=== PATIENT | female | born 1975 | race Caucasian/White ===

== ENCOUNTER 2017-10-11 15:42 | Inpatient (IN) | payer BC ==
[2017-10-11] MEDS ORDERED: PROMETHAZINE HCL INJ 25 MG/1 ML VIAL IV PRN (16:57)
[2017-10-11 17:49] LABS: APPEARANCE,URINE CLEAR; BILIRUBIN,URINE NEGATIVE (NEGATIVE); COLOR,URINE STRAW; GLUCOSE, URINE NEGATIVE (NEGATIVE); KETONES,URINE NEGATIVE (NEGATIVE); LEUKOCYTE ESTERASE,URINE NEGATIVE (NEGATIVE); NITRITE,URINE NEGATIVE (NEGATIVE); PROTEIN,URINE NEGATIVE (NEGATIVE); URINE SPECIFIC GRAVITY 1.004; UROBILINOGEN,URINE NEGATIVE mg/dL (<2.0)
[2017-10-11] MEDS: NORMAL SALINE 1000 ML 1,000 ML IV PRN (18:09)
[2017-10-11] MEDS: MORPHINE SULFATE 10 MG/ML INJ IV PRN (18:10)
[2017-10-11 18:33] LABS: HEMATOCRIT 26.5 % (36.0-47.0); HEMOGLOBIN 8.4 g/dL (12.0-15.5); MEAN CORPUSCULAR HEMOGLOBIN 23.8 pg (27.0-33.4); MEAN CORPUSCULAR HGB CONC 31.7 g/dL (32.0-36.0); MEAN CORPUSCULAR VOLUME 75 fl (80-97); PLATELET COUNT 400 10^3/uL (150-450); RED BLOOD COUNT 3.53 10^6/uL (3.72-5.28); RED CELL DISTRIBUTION WIDTH 17.3 % (11.5-14.0); WHITE BLOOD COUNT 9.2 10^3/uL (4.0-10.5)
[2017-10-11 18:52] LABS: ALANINE AMINOTRANSFERASE 23 U/L (9-52); ALBUMIN 4.4 g/dL (3.5-5.0); ALKALINE PHOSPHATASE 66 U/L (38-126); AMYLASE 82 U/L (30-110); ANION GAP 12 (5-19); ASPARTATE AMINO TRANSFERASE 18 U/L (14-36); BLOOD UREA NITROGEN 5 mg/dL (7-20); CALCIUM 8.7 mg/dL (8.4-10.2); CARBON DIOXIDE 27 mmol/L (22-30); CHLORIDE 102 mmol/L (98-107); GLUCOSE 85 mg/dL (75-110); POTASSIUM 3.2 mmol/L (3.6-5.0); SODIUM 141.4 mmol/L (137-145)
[2017-10-11 18:55] LABS: BILIRUBIN,TOTAL < 0.1 mg/dL (0.2-1.3)
[2017-10-11 19:06] LABS: FREE T4 (FREE THYROXINE) 0.2 ng/dL (0.78-2.19)
[2017-10-11 19:20] LABS: THYROID STIMULATING HORMONE 54.4 uIU/mL (0.47-4.68)
[2017-10-11] MEDS ORDERED: GABAPENTIN 300 MG CAPSULE PO PRN (21:09)
[2017-10-11] MEDS ORDERED: (PENDING PHARMACY ID) (Oxycodone Hcl/Acetaminophen [Percocet 7.5-325 Mg Tablet] 1 EACH) PO PRN (21:09)
[2017-10-11] MEDS: TEMAZEPAM 15 MG CAPSULE PO SCH (21:55)
[2017-10-11] MEDS: ALPRAZOLAM 0.5 MG TABLET PO PRN (21:55)
[2017-10-11] MEDS: OXYCODONE-ACETAMINOPHEN 5-325 MG TABLET PO PRN (21:55)
[2017-10-11] MEDS ORDERED: (PENDING PHARMACY ID) (Temazepam [Restoril] 30 MG) PO SCH (22:00)
[2017-10-11 22:01] LABS: ABSOLUTE RETICS # 0.061 10^6/uL (0.028-0.122); RETICULOCYTE COUNT (AUTO) 1.74 % (0.66-2.85)
[2017-10-11 22:48] LABS: FERRITIN 4.99 ng/mL (6.2-137.0)
[2017-10-11 23:18] LABS: FOLATE 2.84 ng/mL (>2.76)
[2017-10-11 23:20] LABS: IRON(TIBC) < 10.1 ug/dL (37-170)
[2017-10-12] MEDS: OXYCODONE-ACETAMINOPHEN 5-325 MG TABLET PO PRN ×2 (03:15→14:24)
[2017-10-12] MEDS: MORPHINE SULFATE 10 MG/ML INJ IV PRN ×2 (05:41→20:09)
[2017-10-12] MEDS: NORMAL SALINE 1000 ML 1,000 ML IV PRN ×2 (05:41→14:30)
[2017-10-12] MEDS: LEVOTHYROXINE SODIUM 0.15 MG TABLET PO SCH (05:42)
[2017-10-12 08:34] LABS: ABSOLUTE BASOPHILS # (AUTO) 0.1 10^3/uL (0.0-0.2); ABSOLUTE EOSINOPHILS # (AUTO) 0.5 10^3/uL (0.0-0.6); ABSOLUTE LYMPHOCYTES (AUTO) 2.1 10^3/uL (0.5-4.7); ABSOLUTE MONOCYTES (AUTO) 0.3 10^3/uL (0.1-1.4); ABSOLUTE NEUT (AUTO) 4.9 10^3/uL (1.7-8.2); BASOPHILS % (AUTO) 1.2 % (0-2); EOSINOPHILS % (AUTO) 6.2 % (0-6); HEMATOCRIT 25.3 % (36.0-47.0); MEAN CORPUSCULAR HEMOGLOBIN 23.4 pg (27.0-33.4); MEAN CORPUSCULAR HGB CONC 31.2 g/dL (32.0-36.0); MEAN CORPUSCULAR VOLUME 75 fl (80-97); MONOCYTES % (AUTO) 4.3 % (3-13); PLATELET COUNT 354 10^3/uL (150-450); RED BLOOD COUNT 3.37 10^6/uL (3.72-5.28); RED CELL DISTRIBUTION WIDTH 17.3 % (11.5-14.0); SEGMENTED NEUTROPHILS % (AUTO) 62.3 % (42-78); TOTAL CELLS COUNTED % (AUTO) 100 %; WHITE BLOOD COUNT 7.9 10^3/uL (4.0-10.5)
[2017-10-12] MEDS: OXYCODONE HCL IR 5 MG TABLET PO PRN ×2 (08:35→17:10)
[2017-10-12] MEDS: ALPRAZOLAM 0.5 MG TABLET PO PRN ×2 (08:36→17:06)
--- NOTE | 2017-10-12 08:42 | RADIOLOGY REPORT (SQ) ---
EXAM DESCRIPTION: CT ABD/PELVIS WITH IV ONLY COMPLETED DATE/TIME: 10/11/2017 7:15 pm REASON FOR STUDY: Severe left upper quad abdominal pain COMPARISON: 05/14/2015 TECHNIQUE: CT scan of the abdomen and pelvis performed using helical scanning technique with dynamic intravenous contrast injection. No oral contrast. Images reviewed with lung, soft tissue, and bone windows. Reconstructed coronal and sagittal MPR images reviewed. Delayed images for evaluation of the urinary system also acquired. All images stored on PACS. All CT scanners at this facility use dose modulation, iterative reconstruction, and/or weight based d osing when appropriate to reduce radiation dose to as low as reasonably achievable (ALARA). [facility]: Dose Right [facility]: CareDose [facility]: Dose Right [facility]: Teradose 4D [facility]: Geotender CONTRAST TYPE AND DOSE: contrast/concentration: Isovue 350.00 mg/ml; Total Contrast Delivered: 75.0 ml; Total Saline Delivered: 47.0 ml RENAL FUNCTION: None required. The patient is less than 50 years old. RADIATION DOSE: CT Rad equipment meets quality standard of care and radiation dose reduction techniq ues were employed. CTDIvol: 6.9 - 9.7 mGy. DLP: 879 mGy-cm.. LIMITATIONS: None. FINDINGS: LOWER CHEST: No significant findings. No nodules or infiltrates. LIVER: Normal size. No masses. No dilated ducts. SPLEEN: Normal size. No focal lesions. PANCREAS: No masses. No significant calcifications. No adjacent inflammation or peripancreatic fluid collections. Pancreatic duct not dilated. GALLBLADDER: No identified stones by CT criteria. No inflammatory changes to suggest cholecystitis. ADRENAL GLANDS: No significant masses or asymmetry. RIGHT KIDNEY AND URETER: No solid masses. No significant calcifications. No hydronephrosis or hyd roureter. LEFT KIDNEY AND URETER: No solid masses. No significant calcifications. No hydronephrosis or hydr oureter. AORTA AND VESSELS: No aneurysm. No dissection. Renal arteries, SMA, celiac without stenosis. RETROPERITONEUM: No retroperitoneal adenopathy, hemorrhage or masses. BOWEL AND PERITONEAL CAVITY: No masses or inflammatory changes. No free fluid or peritoneal masses. APPENDIX: Normal. PELVIS: The uterus remains enlarged but stable in appearance. Small adnexal lesions are noted consis tent with cysts. No free fluid. ABDOMINAL WALL: There is a small umbilical hernia containing omental fat only. BONES: No significant or acute findings. OTHER: No other significant finding. IMPRESSION: 1. The uterus remains enlarged but no focal masses are identified. 2. No other significant findings in the abdomen or pelvis. No evidence of inflammation. No evidence of bowel obstruction. TECHNICAL DOCUMENTATION: JOB ID: [id number] Quality ID # [id number]: Final reports with documentation of one or more dose reduction techniques (e.g., Au tomated exposure control, adjustment of the mA and/or kV according to patient size, use of iterative reconstruction technique) 2010 [employer] All Rights Reserved Reading location - IP/workstation name: [email or web address]
[2017-10-12 08:43] LABS: HEMOGLOBIN 7.9 g/dL (12.0-15.5)
[2017-10-12 08:46] LABS: ABSOLUTE RETICS # 0.051 10^6/uL (0.028-0.122); RETICULOCYTE COUNT (AUTO) 1.52 % (0.66-2.85)
[2017-10-12 09:32] LABS: FERRITIN 5.12 ng/mL (6.2-137.0)
[2017-10-12] MEDS ORDERED: MORPHINE SULFATE 10 MG/ML INJ ONE (09:43)
[2017-10-12] MEDS ORDERED: LEVOTHYROXINE SODIUM INJ/PF 0.1 MG SDV IV SCH (10:00)
[2017-10-12 10:02] LABS: FOLATE 3.16 ng/mL (>2.76)
[2017-10-12 10:05] LABS: IRON(TIBC) < 10.1 ug/dL (37-170)
[2017-10-12] MEDS ORDERED: MORPHINE SULFATE 10 MG/ML INJ IV PRN (10:28)
[2017-10-12 17:46] LABS: ALANINE AMINOTRANSFERASE 20 U/L (9-52); ALBUMIN 3.6 g/dL (3.5-5.0); ALKALINE PHOSPHATASE 56 U/L (38-126); ANION GAP 12 (5-19); ASPARTATE AMINO TRANSFERASE 18 U/L (14-36); BILIRUBIN,DIRECT 0.2 mg/dL (0.0-0.4); BILIRUBIN,TOTAL 0.2 mg/dL (0.2-1.3); BLOOD UREA NITROGEN 5 mg/dL (7-20); CARBON DIOXIDE 21 mmol/L (22-30); CHLORIDE 108 mmol/L (98-107); GLUCOSE 99 mg/dL (75-110); POTASSIUM 3.4 mmol/L (3.6-5.0); SODIUM 140.7 mmol/L (137-145)
--- NOTE | 2017-10-12 18:05 | PDOC H&P ---
History of Present Illness Admission Date/PCP: 10/11/17 15:42 YELENA DIMAS MD History of Present Illness: REMY GARCIA is a 42 year old female, she came to the office after many years of hiatus for evaluation of pain in the left upper quadrant of the abdomen , she was very tender to touch in the office, she has a history of hypothyroidism, she has not took a Synthroid in 8 months she has boggy eyelids suggestive of hypothyroid state. She was admitted directly from the office to the hospital for evaluation of her symptoms, a CAT scan of the abdomen and pelvis was obtained, it demonstrated normal pancreas, liver, spleen, gallbladder , it showed enlarged uterus otherwise negative study. Initial blood work suggests anemia subsequent evaluation suggests severe iron deficiency anemia. There is no explanation for the pain in the left upper quadrant that she is experiencing. I spoke to the GI physician Dr. Dsouza, patient will be need GI endoscopy for evaluation in light of the severe deficiency anemia and also unexplained left upper quadrant pain of the abdomen. Past Medical History Pulmonary Medical History: Reports: Pneumonia Neurological Medical History: Reports: Migraine Endocrine Medical History: Reports: Hypothyroidism Musculoskeltal Medical History: Reports: Fibromyalgia Psychiatric Medical History: Reports: Bipolar Disorder, Depression Past Surgical History Past Surgical History: Reports: Section - 2, Tubal Ligation Social History Smoking Status: Current Every Day Smoker Cigarettes Packs Per Day: 1 Frequency of Alcohol Use: Occasional Hx Recreational Drug Use: No Drugs: None Hx Prescription Drug Abuse: No Family History Family History: Reviewed & Not Pertinent Parental Family History Reviewed: Yes Children Family History Reviewed: Yes Sibling(s) Family History Reviewed.: Yes Medication/Allergy Home Medications: Alprazolam [Xanax 0.5 mg Tablet] 0.5 mg PO Q8HP PRN 10/11/17 Gabapentin [Neurontin 300 mg Capsule] 300 mg PO Q8HP PRN 10/11/17 Levothyroxine Sodium [Synthroid 0.15 mg Tablet] 0.15 mg PO Q6AM 10/11/17 Oxycodone HCl/Acetaminophen [Percocet 7.5-325 mg Tablet] 1 each PO BIDP PRN Temazepam [Restoril] 30 mg PO QHS 10/11/17 Allergies/Adverse Reactions: NSAIDS (Non-Steroidal Anti-Inflamma [Nsaids] Allergy (Mild, Verified 07/29/15 19 :43) cephalexin monohydrate [From Keflex] Allergy (Verified 07/29/15 19:43) Sulfa (Sulfonamide Antibiotics) Allergy (Verified 07/29/15 19:43) sulfamethoxazole [From Bactrim] Allergy (Verified 07/29/15 19:43) trimethoprim [From Bactrim] Allergy (Verified 07/29/15 19:43) Review of Systems Constitutional: ABSENT: chills, fever(s), headache(s), weight gain, weight loss Eyes: ABSENT: visual disturbances Ears: ABSENT: hearing changes Cardiovascular: ABSENT: chest pain, dyspnea on exertion, edema, orthropnea, palpitations Respiratory: ABSENT: cough, hemoptysis Gastrointestinal: PRESENT: abdominal pain Genitourinary: ABSENT: dysuria, hematuria Musculoskeletal: ABSENT: joint swelling Integumentary: ABSENT: rash, wounds Neurological: ABSENT: abnormal gait, abnormal speech, confusion, dizziness, focal weakness, syncope Psychiatric: ABSENT: anxiety, depression, homidical ideation, suicidal ideation Endocrine: ABSENT: cold intolerance, heat intolerance, menstrual abnormalities, polydipsia, polyuria Hematologic/Lymphatic: ABSENT: easy bleeding, easy bruising, lymphadenopathy Physical Exam Vital Signs: Temp Pulse Resp BP Pulse Ox 98.6 F 73 16 111/67 98 10/12/17 15:17 10/12/17 15:17 10/12/17 15:17 10/12/17 15:17 10/12/17 15:17 Intake & Output 10/11/17 10/12/17 10/13/17 06:59 06:59 06:59 Intake Total 2530 882 Balance 2530 882 Weight 72.4 kg General appearance: PRESENT: mild distress Head exam: PRESENT: atraumatic, normocephalic Eye exam: PRESENT: conjunctiva pink, EOMI, PERRLA Ear exam: PRESENT: normal external ear exam Mouth exam: PRESENT: moist, tongue midline Neck exam: PRESENT: full ROM Respiratory exam: PRESENT: clear to auscultation guy Cardiovascular exam: PRESENT: RRR, +S1, +S2 Pulses: PRESENT: normal dorsalis pedis pul, +2 pedal pulses bilateral Vascular exam: PRESENT: normal capillary refill GI/Abdominal exam: PRESENT: soft, tenderness - There is tenderness in the left upper quadrant of the abdomen Rectal exam: PRESENT: deferred Neurological exam: PRESENT: alert, awake, oriented to person, oriented to place , oriented to time, oriented to situation, CN II-XII grossly intact Psychiatric exam: PRESENT: appropriate affect, normal mood Skin exam: PRESENT: dry, intact, warm Results Laboratory Results: 10/12/17 08:14 10/12/17 08:14 10/11/17 10/11/17 10/11/17 17:20 17:55 17:55 WBC 9.2 RBC 3.53 L Hgb 8.4 L Hct 26.5 L MCV 75 L MCH 23.8 L MCHC 31.7 L RDW 17.3 H Plt Count 400 Seg Neutrophils % Lymphocytes % Monocytes % Eosinophils % Basophils % Absolute Neutrophils Absolute Lymphocytes Absolute Monocytes Absolute Eosinophils Absolute Basophils Retic Count (auto) Absolute Retic Sodium 141.4 Potassium 3.2 L Chloride 102 Carbon Dioxide 27 Anion Gap 12 BUN 5 L Creatinine 0.67 Est GFR ( Amer) > 60 Est GFR (Non-Af Amer) > 60 Glucose 85 Calcium 8.7 Iron TIBC % Saturation Ferritin Total Bilirubin < 0.1 L AST 18 ALT 23 Alkaline Phosphatase 66 Total Protein 7.0 Albumin 4.4 Amylase 82 Lipase 373.0 H Vitamin B12 Folate TSH Free T4 Urine Color STRAW Urine Appearance CLEAR Urine pH 6.0 Ur Specific [place] 1.004 Urine Protein NEGATIVE Urine Glucose (UA) NEGATIVE Urine Ketones NEGATIVE Urine Blood LARGE H Urine Nitrite NEGATIVE Ur Leukocyte Esterase NEGATIVE Urine WBC (Auto) 3 Urine RBC (Auto) 0 10/11/17 10/11/17 10/11/17 17:55 17:55 17:55 WBC RBC Hgb Hct MCV MCH MCHC RDW Plt Count Seg Neutrophils % Lymphocytes % Monocytes % Eosinophils % Basophils % Absolute Neutrophils Absolute Lymphocytes Absolute Monocytes Absolute Eosinophils Absolute Basophils Retic Count (auto) 1.74 Absolute Retic 0.061 Sodium Potassium Chloride Carbon Dioxide Anion Gap BUN Creatinine Est GFR ( Amer) Est GFR (Non-Af Amer) Glucose Calcium Iron < 10.1 L TIBC 529 H % Saturation UNABLE TO CALCULATE Ferritin 4.99 L Total Bilirubin AST ALT Alkaline Phosphatase Total Protein Albumin Amylase Lipase Vitamin B12 658.0 Folate 2.84 TSH 54.40 H Free T4 0.20 L Urine Color Urine Appearance Urine pH Ur Specific [place] Urine Protein Urine Glucose (UA) Urine Ketones Urine Blood Urine Nitrite Ur Leukocyte Esterase Urine WBC (Auto) Urine RBC (Auto) 10/12/17 10/12/17 10/12/17 08:14 08:14 08:14 WBC 7.9 RBC 3.37 L Hgb 7.9 L Hct 25.3 L MCV 75 L MCH 23.4 L MCHC 31.2 L RDW 17.3 H Plt Count 354 Seg Neutrophils % 62.3 Lymphocytes % 26.0 Monocytes % 4.3 Eosinophils % 6.2 H Basophils % 1.2 Absolute Neutrophils 4.9 Absolute Lymphocytes 2.1 Absolute Monocytes 0.3 Absolute Eosinophils 0.5 Absolute Basophils 0.1 Retic Count (auto) 1.52 Absolute Retic 0.051 Sodium Potassium Chloride Carbon Dioxide Anion Gap BUN Creatinine Est GFR ( Amer) Est GFR (Non-Af Amer) Glucose Calcium Iron < 10.1 L TIBC 464 H % Saturation UNABLE TO CALCULATE Ferritin 5.12 L Total Bilirubin AST ALT Alkaline Phosphatase Total Protein Albumin Amylase Lipase Vitamin B12 640.0 Folate 3.16 TSH Free T4 Urine Color Urine Appearance Urine pH Ur Specific [place] Urine Protein Urine Glucose (UA) Urine Ketones Urine Blood Urine Nitrite Ur Leukocyte Esterase Urine WBC (Auto) Urine RBC (Auto) 10/12/17 08:14 WBC RBC Hgb Hct MCV MCH MCHC RDW Plt Count Seg Neutrophils % Lymphocytes % Monocytes % Eosinophils % Basophils % Absolute Neutrophils Absolute Lymphocytes Absolute Monocytes Absolute Eosinophils Absolute Basophils Retic Count (auto) Absolute Retic Sodium 140.7 Potassium 3.4 L Chloride 108 H Carbon Dioxide 21 L Anion Gap 12 BUN 5 L Creatinine 0.58 Est GFR ( Amer) > 60 Est GFR (Non-Af Amer) > 60 Glucose 99 Calcium 8.0 L Iron TIBC % Saturation Ferritin Total Bilirubin 0.2 AST 18 ALT 20 Alkaline Phosphatase 56 Total Protein 6.0 L Albumin 3.6 Amylase Lipase Vitamin B12 Folate TSH Free T4 Urine Color Urine Appearance Urine pH Ur Specific [place] Urine Protein Urine Glucose (UA) Urine Ketones Urine Blood Urine Nitrite Ur Leukocyte Esterase Urine WBC (Auto) Urine RBC (Auto) 10/11/17 17:20 Clean Catch Midstream Urine Culture - Final Mixed Urogenital Anita Impressions: Abdomen/Pelvis CT 10/11/17 00:00 IMPRESSION: 1. The uterus remains enlarged but no focal masses are identified. 2. No other significant findings in the abdomen or pelvis. No evidence of inflammation. No evidence of bowel obstruction. 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
--- NOTE | 2017-10-12 19:18 | PDOC CONSULTATION ---
Consultation Consult Date: 10/12/17 Attending physician:: ESTEFANI DAY Consult reason:: abdominal pain. iron dificiency anemia History of Present Illness Admission Date/PCP: 10/11/17 15:42 YELENA DIMAS MD History of Present Illness: REMY GARCIA is a 42 year old female patient presented to Dr Xavier's office if abdominal pain out of proportion to physical and CT scan findings I spoke with Dr Xavier, apparently patient had so much pain that is was excruciating to light touch patient admitted has iron deficiency anemia has not have GI evaluation patient denies any NSAID use there is no blood noted denies any dysphagia or odynophagia Past Medical History Pulmonary Medical History: Reports: Pneumonia Neurological Medical History: Reports: Migraine Endocrine Medical History: Reports: Hypothyroidism Musculoskeltal Medical History: Reports: Fibromyalgia Psychiatric Medical History: Reports: Bipolar Disorder, Depression Past Surgical History Past Surgical History: Reports: Section - 2, Tubal Ligation Social History Smoking Status: Current Every Day Smoker Cigarettes Packs Per Day: 1 Frequency of Alcohol Use: Occasional Hx Recreational Drug Use: No Drugs: None Hx Prescription Drug Abuse: No Family History Family History: Reviewed & Not Pertinent Parental Family History Reviewed: Yes Children Family History Reviewed: Unknown Sibling(s) Family History Reviewed.: Unknown Medication/Allergy Home Medications: Alprazolam [Xanax 0.5 mg Tablet] 0.5 mg PO Q8HP PRN 10/11/17 Gabapentin [Neurontin 300 mg Capsule] 300 mg PO Q8HP PRN 10/11/17 Levothyroxine Sodium [Synthroid 0.15 mg Tablet] 0.15 mg PO Q6AM 10/11/17 Oxycodone HCl/Acetaminophen [Percocet 7.5-325 mg Tablet] 1 each PO BIDP PRN Temazepam [Restoril] 30 mg PO QHS 10/11/17 Allergies/Adverse Reactions: NSAIDS (Non-Steroidal Anti-Inflamma [Nsaids] Allergy (Mild, Verified 07/29/15 19 :43) cephalexin monohydrate [From Keflex] Allergy (Verified 07/29/15 19:43) Sulfa (Sulfonamide Antibiotics) Allergy (Verified 07/29/15 19:43) sulfamethoxazole [From Bactrim] Allergy (Verified 07/29/15 19:43) trimethoprim [From Bactrim] Allergy (Verified 07/29/15 19:43) Review of Systems Constitutional: ABSENT: fever(s), headache(s), night sweats, weakness Eyes: ABSENT: visual disturbances Ears: ABSENT: hearing changes Nose, Mouth, and Throat: ABSENT: mouth pain, sore throat Cardiovascular: ABSENT: edema, orthropnea, palpitations Respiratory: ABSENT: dyspnea, hemoptysis Gastrointestinal: ABSENT: hematochezia, melena, nausea, vomiting Genitourinary: ABSENT: dysuria, hematuria Musculoskeletal: ABSENT: deformity, joint swelling Integumentary: ABSENT: lesions, pruritus Neurological: ABSENT: syncope, tingling, tremor(s), vertigo Endocrine: ABSENT: polydipsia, polyphagia, polyuria Hematologic/Lymphatic: ABSENT: easy bruising Physical Exam Vital Signs: Temp Pulse Resp BP Pulse Ox 98.6 F 73 16 111/67 98 10/12/17 15:17 10/12/17 15:17 10/12/17 15:17 10/12/17 15:17 10/12/17 15:17 Intake & Output 10/11/17 10/12/17 10/13/17 06:59 06:59 06:59 Intake Total 2530 2139 Balance 2530 2139 Weight 72.4 kg General appearance: PRESENT: well-developed, well-nourished Head exam: PRESENT: atraumatic, normocephalic Eye exam: PRESENT: EOMI, nystagmus, periorbital swelling, PERRLA, scleral icterus Mouth exam: PRESENT: moist, neck supple Throat exam: ABSENT: tonsillar exudate, tonsillogmegaly Neck exam: ABSENT: meningismus, tenderness, thyromegaly Respiratory exam: PRESENT: symmetrical, unlabored. ABSENT: tachypnea, wheezes Cardiovascular exam: PRESENT: RRR, +S1, +S2 GI/Abdominal exam: PRESENT: soft, tenderness. ABSENT: rebound, rigid Extremities exam: ABSENT: joint swelling Musculoskeletal exam: PRESENT: full ROM Neurological exam: PRESENT: awake, oriented to time, oriented to situation, CN II-XII grossly intact Psychiatric exam: PRESENT: anxious Focused psych exam: ABSENT: restlessness Skin exam: PRESENT: normal color, urticaria, vesicles. ABSENT: mottled, pallor , petechiae Results Laboratory Results: 10/12/17 08:14 10/12/17 08:14 10/11/17 10/11/17 10/11/17 17:55 17:55 17:55 WBC RBC Hgb Hct MCV MCH MCHC RDW Plt Count Seg Neutrophils % Lymphocytes % Monocytes % Eosinophils % Basophils % Absolute Neutrophils Absolute Lymphocytes Absolute Monocytes Absolute Eosinophils Absolute Basophils Retic Count (auto) 1.74 Absolute Retic 0.061 Sodium Potassium Chloride Carbon Dioxide Anion Gap BUN Creatinine Est GFR ( Amer) Est GFR (Non-Af Amer) Glucose Calcium Iron < 10.1 L TIBC 529 H % Saturation UNABLE TO CALCULATE Ferritin 4.99 L Total Bilirubin AST ALT Alkaline Phosphatase Total Protein Albumin Vitamin B12 658.0 Folate 2.84 TSH 54.40 H Free T4 0.20 L 10/12/17 10/12/17 10/12/17 08:14 08:14 08:14 WBC 7.9 RBC 3.37 L Hgb 7.9 L Hct 25.3 L MCV 75 L MCH 23.4 L MCHC 31.2 L RDW 17.3 H Plt Count 354 Seg Neutrophils % 62.3 Lymphocytes % 26.0 Monocytes % 4.3 Eosinophils % 6.2 H Basophils % 1.2 Absolute Neutrophils 4.9 Absolute Lymphocytes 2.1 Absolute Monocytes 0.3 Absolute Eosinophils 0.5 Absolute Basophils 0.1 Retic Count (auto) 1.52 Absolute Retic 0.051 Sodium Potassium Chloride Carbon Dioxide Anion Gap BUN Creatinine Est GFR ( Amer) Est GFR (Non-Af Amer) Glucose Calcium Iron < 10.1 L TIBC 464 H % Saturation UNABLE TO CALCULATE Ferritin 5.12 L Total Bilirubin AST ALT Alkaline Phosphatase Total Protein Albumin Vitamin B12 640.0 Folate 3.16 TSH Free T4 10/12/17 08:14 WBC RBC Hgb Hct MCV MCH MCHC RDW Plt Count Seg Neutrophils % Lymphocytes % Monocytes % Eosinophils % Basophils % Absolute Neutrophils Absolute Lymphocytes Absolute Monocytes Absolute Eosinophils Absolute Basophils Retic Count (auto) Absolute Retic Sodium 140.7 Potassium 3.4 L Chloride 108 H Carbon Dioxide 21 L Anion Gap 12 BUN 5 L Creatinine 0.58 Est GFR ( Amer) > 60 Est GFR (Non-Af Amer) > 60 Glucose 99 Calcium 8.0 L Iron TIBC % Saturation Ferritin Total Bilirubin 0.2 AST 18 ALT 20 Alkaline Phosphatase 56 Total Protein 6.0 L Albumin 3.6 Vitamin B12 Folate TSH Free T4 10/11/17 17:20 Clean Catch Midstream Urine Culture - Final Mixed Urogenital Anita Impressions: Abdomen/Pelvis CT 10/11/17 00:00 IMPRESSION: 1. The uterus remains enlarged but no focal masses are identified. 2. No other significant findings in the abdomen or pelvis. No evidence of inflammation. No evidence of bowel obstruction. Assessment & Plan - Diagnosis (1) Intractable left upper quadrant abdominal pain Is this a current diagnosis for this admission?: Yes Plan: on chronic pain medication she presents with pain seemingly out of proportion to all of the radiologic, objective exam will need evaluation with EGD Risks, benefits and alternatives are explained to the patient in detail further recommendations to follow she will likely need Propofol sedation (2) Iron deficiency anemia Qualifiers: Iron deficiency anemia type: chronic blood loss Qualified Code(s): D50.0 - Iron deficiency anemia secondary to blood loss (chronic) Is this a current diagnosis for this admission?: Yes Plan: has iron deficiency and will need colonoscopy as well will try to prep overnight I have spoken to Dr Xavier about the plan further recommendations to follow - Time Time Spent: 50 to 70 Minutes
[2017-10-12] MEDS ORDERED: IRON SUCROSE COMPLEX INJ/PF 100 MG/5 ML SDV IV ONE (19:30)
[2017-10-12] MEDS ORDERED: PEG 3350/NA SULF,BICARB,CL/KCL 4000 ML PO ONE (20:00)
[2017-10-12] MEDS: TEMAZEPAM 15 MG CAPSULE PO SCH (21:53)
[2017-10-13] MEDS: ALPRAZOLAM 0.5 MG TABLET PO PRN ×3 (01:06→17:26)
[2017-10-13] MEDS: MORPHINE SULFATE 10 MG/ML INJ IV PRN ×4 (02:33→15:24)
[2017-10-13] MEDS: OXYCODONE-ACETAMINOPHEN 5-325 MG TABLET PO PRN ×2 (04:21→17:26)
[2017-10-13] MEDS: LEVOTHYROXINE SODIUM 0.15 MG TABLET PO SCH (05:55)
[2017-10-13] MEDS ORDERED: PROPOFOL INJ 200 MG/20 ML VIAL IV ONE ×2 (12:17→12:22)
--- NOTE | 2017-10-13 13:47 | Physician Advisory Note ---
Physician Advisor ProgressNote .: Pursuant to the plan for Gómez [place], I have reviewed the medical record for this patient. Physician Advisor Statement: Very nice documentation of chr Fe defic anemia felt to be due to chronic blood loss, source of blood loss yet to be determined, & of location of abd pain. Please consider documenting, if you agree: 1. "Benzodiazepine dependence" 2. "Opioid dependence" 3. "Tobacco dependence" 4. ? "suspected protein-calorie malnutrition [state mild, mod, or severe] with BMI 30.2, very low BUN & Cr, ____[?wt loss, ?appetite loss, ]" [if possible, give specifics on intake, wt loss, loss of SQ fat & muscle mass, diminished hand exterminator helper termite strength, & clinical importance such as (A) nutritional assessment ordered, (B) modified diet or supplements ordered, (C) additional labs ordered, (D) prolonged wound healing time, (E) delayed infxn clearance] 5. Medical necessity: please continue to document each day the continuing clinical reasons pt is not yet safe for d/c that day. Status: 42yo [employer] pt w/fibromyalgia, hypothyroidism, migraines, bipolar d /o, tobacco abuse/dependence, probable benzo/opioid dependence. Appropriately brought in as Obs 10/11 for acute LUQ abd pain of unknown cause, out of proportion to exam findings, w/significantly worsened chronic anemia. Appropriate GI consult 10/12. Going for EGD & colonoscopy today, 10/13, after prep. Very hypothyroid after noncompliance w/Synthroid x 8mo. Has been using prn benzo at least 2x/day, & in addition to use of prn Oxy-IR & Percocet, has been also requiring frequent prn IV morphine since arrival. If pt is found to not be safe for d/c later today because of clinical findings needing further tx/monitoring/workup in hospital (or due to ongoing frequent PRN IV opioid needs requiring further stabilization along with w/u of the underlying pain), please document the clinical issues/concerns, & may be appropriate to change to Inpatient status. Thanks! CK
--- NOTE | 2017-10-13 14:51 | Operative Report ---
Operative Report DATE OF SURGERY: 10/13/17 Operative Report: The risks, benefits and alternatives of the procedure including the risks of bleeding, perforation requiring surgery are explained to the patient in detail and informed consent is obtained. Patient is taken back to the operating room and placed in the left, lateral decubital position. Timeout was called. Propofol medication is administered. A rectal examination is done which did not reveal any masses, tears or fissures. An Olympus videoscope was inserted into the patient's rectum. The scope was then carefully advanced all the way to the cecum. Deep intubation of the cecum could not be done. Patient has a very redundant colon. However the ileocecal valve was evaluated. It did not appear to be any significant mass lesions within the cecal vault. Prep is not as good. There are some areas where there has significant amount of fecal material no mention about the presence or absence of polyps can be made in such areas. The scope was then sequentially pulled back through the various segments of the colon including the ascending colon, hepatic flexure, transverse colon, splenic flexure, descending colon and finally in to the rectosigmoid portions of the colon. Retroflexion maneuvers performed. The risks benefits and alternatives of the procedure explained to the patient in detail and informed consent is obtained.A GIF Olympus video scope was inserted into the patient's mouth and hypopharynx the esophagus is identified intubated and insufflated, the scope was then advanced through the esophagus stomach and duodenum, retroflexion maneuver is done, the esophagus stomach and first and second portions of the duodenum examined PREOPERATIVE DIAGNOSIS: Iron deficiency anemia. Abdominal pain POSTOPERATIVE DIAGNOSIS: Gastritis status post biopsy rule out Helicobacter pylori. Diverticulosis mild no evidence of diverticulitis. Internal hemorrhoids. Sigmoid polyp was removed via snare polypectomy and retrieved. Redundant colon. Right-sided colon inflammation status post biopsy rule out lymphocytic, microscopic, collagenous colitis. OPERATION: Colonoscopy with snare polypectomy. Colonoscopy with biopsy. EGD with biopsy SURGEON: ESTEFANI DAY ANESTHESIA: LMAC TISSUE REMOVED OR ALTERED: As noted above. COMPLICATIONS: None. ESTIMATED BLOOD LOSS: None. INTRAOPERATIVE FINDINGS: As noted above. PROCEDURE: Patient tolerated procedure well. No immediate postprocedure complications are noted. Patient discharged in good condition. Patient is sent back to her room in good condition. Wait on the pathology. Resume diet as tolerated, medications and preprocedure activity level. Surveillance colonoscopy in 3-5 years.
[2017-10-13] MEDS: OXYCODONE HCL IR 5 MG TABLET PO PRN (17:26)
--- NOTE | 2017-10-13 20:07 | PDOC PROGRESS REPORT ---
Subjective Progress Note for:: 10/13/17 Subjective:: She was seen by the bedside, she had EGD and colonoscopy done today the findings on the endoscopy does not explain the pain she is experiencing, the pain she has in the left upper quadrant is out of proportion to the objective findings so far, the CAT scan of the abdomen and pelvis was negative, the upper endoscopy demonstrated nonspecific gastritis, diverticulosis without diverticulitis , hemorrhoids the findings would not explain his abdominal pain, the morphine would be discontinued, she is on chronic opioid therapy she also depend on benzodiazepines Reason For Visit: SEVERE LT UPPER QUADRANT PAIN Physical Exam Vital Signs: Temp Pulse Resp BP Pulse Ox 97.5 F 72 16 115/79 100 10/13/17 16:13 10/13/17 16:13 10/13/17 16:13 10/13/17 16:13 10/13/17 16:13 Intake & Output 10/12/17 10/13/17 10/14/17 06:59 06:59 06:59 Intake Total 2530 3119 1557 Balance 2530 3119 1557 Weight 72.4 kg 72.5 kg General appearance: PRESENT: no acute distress Eye exam: PRESENT: PERRLA Respiratory exam: PRESENT: clear to auscultation guy Cardiovascular exam: PRESENT: +S1, +S2 GI/Abdominal exam: PRESENT: soft Neurological exam: PRESENT: alert Results Laboratory Results: 10/12/17 08:14 10/12/17 08:14 Impressions: Abdomen/Pelvis CT 10/11/17 00:00 IMPRESSION: 1. The uterus remains enlarged but no focal masses are identified. 2. No other significant findings in the abdomen or pelvis. No evidence of inflammation. No evidence of bowel obstruction. Assessment & Plan - Diagnosis (1) Intractable left upper quadrant abdominal pain Is this a current diagnosis for this admission?: Yes (2) Iron deficiency anemia Qualifiers: Iron deficiency anemia type: chronic blood loss Qualified Code(s): D50.0 - Iron deficiency anemia secondary to blood loss (chronic) Is this a current diagnosis for this admission?: Yes (3) Opioid dependence Qualifiers: Substance use status: uncomplicated Qualified Code(s): F11.20 - Opioid dependence, uncomplicated Is this a current diagnosis for this admission?: Yes (4) Benzodiazepine dependence, continuous Is this a current diagnosis for this admission?: Yes - Plan Summary Plan Summary: Repeat CBC, repeat metabolic panel,, DC morphine, start Cymbalta the exact etiology of the pain is not clear
[2017-10-13] MEDS ORDERED: DULOXETINE HCL 30 MG CAPSULE.DR PO SCH (20:15)
[2017-10-13 20:41] LABS: ABSOLUTE BASOPHILS # (AUTO) 0.1 10^3/uL (0.0-0.2); ABSOLUTE EOSINOPHILS # (AUTO) 0.5 10^3/uL (0.0-0.6); ABSOLUTE LYMPHOCYTES (AUTO) 1.9 10^3/uL (0.5-4.7); ABSOLUTE MONOCYTES (AUTO) 0.4 10^3/uL (0.1-1.4); ABSOLUTE NEUT (AUTO) 8.2 10^3/uL (1.7-8.2); BASOPHILS % (AUTO) 0.7 % (0-2); EOSINOPHILS % (AUTO) 4.8 % (0-6); HEMATOCRIT 22.8 % (36.0-47.0); LYMPHOCYTES % (AUTO) 16.9 % (13-45); MEAN CORPUSCULAR HGB CONC 32.2 g/dL (32.0-36.0); MEAN CORPUSCULAR VOLUME 75 fl (80-97); MONOCYTES % (AUTO) 3.7 % (3-13); PLATELET COUNT 334 10^3/uL (150-450); RED BLOOD COUNT 3.06 10^6/uL (3.72-5.28); RED CELL DISTRIBUTION WIDTH 17.3 % (11.5-14.0); SEGMENTED NEUTROPHILS % (AUTO) 73.9 % (42-78); TOTAL CELLS COUNTED % (AUTO) 100 %; WHITE BLOOD COUNT 11.2 10^3/uL (4.0-10.5)
[2017-10-13 20:43] LABS: HEMOGLOBIN 7.3 g/dL (12.0-15.5)
[2017-10-13 20:49] LABS: ALANINE AMINOTRANSFERASE 36 U/L (9-52); ALBUMIN 3.5 g/dL (3.5-5.0); ALKALINE PHOSPHATASE 57 U/L (38-126); ANION GAP 8 (5-19); ASPARTATE AMINO TRANSFERASE 36 U/L (14-36); BILIRUBIN,DIRECT 0.1 mg/dL (0.0-0.4); BILIRUBIN,TOTAL 0.1 mg/dL (0.2-1.3); BLOOD UREA NITROGEN 4 mg/dL (7-20); CALCIUM 7.6 mg/dL (8.4-10.2); CARBON DIOXIDE 25 mmol/L (22-30); CHLORIDE 108 mmol/L (98-107); GLUCOSE 87 mg/dL (75-110); POTASSIUM 3.5 mmol/L (3.6-5.0); SODIUM 141.3 mmol/L (137-145); TOTAL PROTEIN 5.8 g/dL (6.3-8.2)
[2017-10-13] MEDS ORDERED: AMITRIPTYLINE HCL 50 MG TABLET PO SCH (22:00)
[2017-10-13] MEDS: TEMAZEPAM 15 MG CAPSULE PO SCH (23:32)
[2017-10-14] MEDS: ALPRAZOLAM 0.5 MG TABLET PO PRN ×2 (02:32→10:24)
[2017-10-14] MEDS: LEVOTHYROXINE SODIUM 0.15 MG TABLET PO SCH (06:37)
[2017-10-14] MEDS: NORMAL SALINE 1000 ML 1,000 ML IV PRN ×2 (06:39→10:24)
--- NOTE | 2017-10-14 07:58 | PDOC PROGRESS REPORT ---
Subjective Progress Note for:: 10/14/17 Subjective:: patient tolerated his procedure well had sigmoid polyp that was removed prep was not good and patient also had a very redundant colon deep intubation of the cecum could not be done patient has some gastritis but not ulcers no obvious bleeding site however will need further work up for iron deficiency anemia no post procedure complications are noted Reason For Visit: SEVERE LT UPPER QUADRANT PAIN Physical Exam Vital Signs: Temp Pulse Resp BP Pulse Ox 98.5 F 74 15 143/78 H 98 10/14/17 03:54 10/14/17 03:54 10/14/17 03:54 10/14/17 03:54 10/14/17 03:54 Intake & Output 10/13/17 10/14/17 10/15/17 06:59 06:59 06:59 Intake Total 3119 4339 Balance 3119 4339 Weight 72.5 kg 73.2 kg General appearance: PRESENT: no acute distress, well-developed, well-nourished Head exam: PRESENT: atraumatic, normocephalic Eye exam: PRESENT: EOMI, PERRLA. ABSENT: nystagmus, periorbital swelling, scleral icterus Mouth exam: PRESENT: moist, neck supple Throat exam: ABSENT: tonsillar exudate, tonsillogmegaly Neck exam: ABSENT: meningismus, tenderness, thyromegaly Respiratory exam: PRESENT: symmetrical, unlabored. ABSENT: tachypnea, wheezes Cardiovascular exam: PRESENT: RRR, +S1, +S2 GI/Abdominal exam: PRESENT: soft. ABSENT: rebound, rigid, tenderness Neurological exam: PRESENT: oriented to time, oriented to situation, CN II-XII grossly intact Focused psych exam: ABSENT: restlessness Skin exam: PRESENT: normal color. ABSENT: mottled, pallor, urticaria, vesicles Results Laboratory Results: 10/13/17 20:15 10/13/17 20:15 10/13/17 10/13/17 10/13/17 20:15 20:15 21:21 WBC 11.2 H RBC 3.06 L Hgb 7.3 L Hct 22.8 L MCV 75 L MCH 24.0 L MCHC 32.2 RDW 17.3 H Plt Count 334 Seg Neutrophils % 73.9 Lymphocytes % 16.9 Monocytes % 3.7 Eosinophils % 4.8 Basophils % 0.7 Absolute Neutrophils 8.2 Absolute Lymphocytes 1.9 Absolute Monocytes 0.4 Absolute Eosinophils 0.5 Absolute Basophils 0.1 Sodium 141.3 Potassium 3.5 L Chloride 108 H Carbon Dioxide 25 Anion Gap 8 BUN 4 L Creatinine 0.59 Est GFR ( Amer) > 60 Est GFR (Non-Af Amer) > 60 Glucose 87 Calcium 7.6 L Total Bilirubin 0.1 L AST 36 ALT 36 Alkaline Phosphatase 57 Total Protein 5.8 L Albumin 3.5 Blood Type A POSITIVE Antibody Screen NEGATIVE Impressions: Abdomen/Pelvis CT 10/11/17 00:00 IMPRESSION: 1. The uterus remains enlarged but no focal masses are identified. 2. No other significant findings in the abdomen or pelvis. No evidence of inflammation. No evidence of bowel obstruction. Assessment & Plan - Diagnosis (1) Intractable left upper quadrant abdominal pain Is this a current diagnosis for this admission?: Yes Plan: no etiology found may not be GI in origin wait on biopsies (2) Iron deficiency anemia Qualifiers: Iron deficiency anemia type: chronic blood loss Qualified Code(s): D50.0 - Iron deficiency anemia secondary to blood loss (chronic) Is this a current diagnosis for this admission?: Yes Plan: continue to work up for other causes will need repeat colonoscopy in 2-3 years with a much better prep
[2017-10-14] MEDS: OXYCODONE-ACETAMINOPHEN 5-325 MG TABLET PO PRN ×2 (08:04→15:52)
[2017-10-14] MEDS: OXYCODONE HCL IR 5 MG TABLET PO PRN ×2 (08:05→15:53)
[2017-10-14 10:09] LABS: MEAN CORPUSCULAR HEMOGLOBIN 24.4 pg (27.0-33.4); MEAN CORPUSCULAR HGB CONC 32.6 g/dL (32.0-36.0); MEAN CORPUSCULAR VOLUME 75 fl (80-97); PLATELET COUNT 294 10^3/uL (150-450); RED BLOOD COUNT 3.99 10^6/uL (3.72-5.28); RED CELL DISTRIBUTION WIDTH 17.6 % (11.5-14.0); WHITE BLOOD COUNT 7.4 10^3/uL (4.0-10.5)
[2017-10-14 10:10] LABS: HEMOGLOBIN 9.8 g/dL (12.0-15.5)
[2017-10-14 17:21] VITALS: BP 120/80
--- NOTE | 2017-10-14 17:58 | PDOC DISCHARGE SUMMARY ---
General - Admit/Disc Date/PCP Admission Date/Primary Care Provider: 10/13/17 14:16 YELENA DIMAS MD Discharge Date: 10/14/17 - Discharge Diagnosis (1) Intractable left upper quadrant abdominal pain Is this a current diagnosis for this admission?: Yes (2) Iron deficiency anemia Is this a current diagnosis for this admission?: Yes (3) Opioid dependence Is this a current diagnosis for this admission?: Yes (4) Benzodiazepine dependence, continuous Is this a current diagnosis for this admission?: Yes (5) Redundant colon Is this a current diagnosis for this admission?: Yes (6) Acute gastritis without mention of hemorrhage Is this a current diagnosis for this admission?: Yes (7) Hypothyroid Is this a current diagnosis for this admission?: Yes - Additional Information Resuscitation Status: Full Code Home Medications: Alprazolam [Xanax 0.5 mg Tablet] 0.5 mg PO Q8HP PRN 10/11/17 Gabapentin [Neurontin 300 mg Capsule] 300 mg PO Q8HP PRN 10/11/17 Oxycodone HCl/Acetaminophen [Percocet 7.5-325 mg Tablet] 1 each PO BIDP PRN Temazepam [Restoril] 30 mg PO QHS 10/11/17 Levothyroxine Sodium [Synthroid 0.15 mg Tablet] 0.15 mg PO Q6AM #30 10/14/17 History of Present Illness History of Present Illness: REMY GARCIA is a 42 year old female, she came to the office after many years of hiatus for evaluation of pain in the left upper quadrant of the abdomen , she was very tender to touch in the office, she has a history of hypothyroidism, she has not took a Synthroid in 8 months she has boggy eyelids suggestive of hypothyroid state. She was admitted directly from the office to the hospital for evaluation of her symptoms, a CAT scan of the abdomen and pelvis was obtained, it demonstrated normal pancreas, liver, spleen, gallbladder , it showed enlarged uterus otherwise negative study. Initial blood work suggests anemia subsequent evaluation suggests severe iron deficiency anemia. There is no explanation for the pain in the left upper quadrant that she is experiencing. I spoke to the GI physician Dr. Dsouza, patient will be need GI endoscopy for evaluation in light of the severe deficiency anemia and also unexplained left upper quadrant pain of the abdomen. Hospital Course Hospital Course: Patient was admitted for the management of left upper quadrant abdominal pain, unexplained iron deficiency anemia. CT scan of the abdomen and pelvis was done , it was negative for any acute pathology. Consultation was obtained from GI because of the iron deficiency anemia, she was seen by GI she underwent EGD and colonoscopy, she was found to have gastritis without hemorrhage, she also have a redundant colon, polyp in the sigmoid colon, inflammation in the right colon and biopsies were taken. Pain control was initially managed with morphine with good result after the evaluation with CT scan and colonoscopy I suggested that she should avoid opioid to treat the abdominal pain attempt was made to treat her with Cymbalta, tricyclic antidepressant, she said she cannot tolerate them. She has history of underlining psychiatric disorder she follows with mental health she has iron deficiency anemia she was transfused with 2 units of packed red blood cells she also had IV Venofer Physical Exam Vital Signs: Temp Pulse Resp BP Pulse Ox 98 F 70 16 120/80 99 10/14/17 16:00 10/14/17 16:00 10/14/17 16:00 10/14/17 16:00 10/14/17 16:00 Intake & Output 10/13/17 10/14/17 10/15/17 06:59 06:59 06:59 Intake Total 3119 4639 1440 Balance 3119 4639 1440 Weight 72.5 kg 73.2 kg General appearance: PRESENT: no acute distress, well-developed, well-nourished Head exam: PRESENT: atraumatic, normocephalic Eye exam: PRESENT: conjunctiva pink, EOMI, PERRLA Ear exam: PRESENT: normal external ear exam Mouth exam: PRESENT: moist, tongue midline Neck exam: PRESENT: full ROM Respiratory exam: PRESENT: clear to auscultation guy Cardiovascular exam: PRESENT: RRR, +S1, +S2 Pulses: PRESENT: normal dorsalis pedis pul, +2 pedal pulses bilateral Vascular exam: PRESENT: normal capillary refill GI/Abdominal exam: PRESENT: normal bowel sounds, soft Rectal exam: PRESENT: deferred Neurological exam: PRESENT: alert, awake, oriented to person, oriented to place , oriented to time, oriented to situation, CN II-XII grossly intact Psychiatric exam: PRESENT: appropriate affect, normal mood Skin exam: PRESENT: dry, intact, warm Results Laboratory Results: 10/14/17 09:46 08/30/18 20:15 10/13/17 10/13/17 10/13/17 20:15 20:15 21:21 WBC 11.2 H RBC 3.06 L Hgb 7.3 L Hct 22.8 L MCV 75 L MCH 24.0 L MCHC 32.2 RDW 17.3 H Plt Count 334 Seg Neutrophils % 73.9 Lymphocytes % 16.9 Monocytes % 3.7 Eosinophils % 4.8 Basophils % 0.7 Absolute Neutrophils 8.2 Absolute Lymphocytes 1.9 Absolute Monocytes 0.4 Absolute Eosinophils 0.5 Absolute Basophils 0.1 Sodium 141.3 Potassium 3.5 L Chloride 108 H Carbon Dioxide 25 Anion Gap 8 BUN 4 L Creatinine 0.59 Est GFR ( Amer) > 60 Est GFR (Non-Af Amer) > 60 Glucose 87 Calcium 7.6 L Total Bilirubin 0.1 L AST 36 ALT 36 Alkaline Phosphatase 57 Total Protein 5.8 L Albumin 3.5 Blood Type A POSITIVE Antibody Screen NEGATIVE 10/14/17 09:46 WBC 7.4 RBC 3.99 Hgb 9.8 L D Hct 30.0 L MCV 75 L MCH 24.4 L MCHC 32.6 RDW 17.6 H Plt Count 294 Seg Neutrophils % Lymphocytes % Monocytes % Eosinophils % Basophils % Absolute Neutrophils Absolute Lymphocytes Absolute Monocytes Absolute Eosinophils Absolute Basophils Sodium Potassium Chloride Carbon Dioxide Anion Gap BUN Creatinine Est GFR ( Amer) Est GFR (Non-Af Amer) Glucose Calcium Total Bilirubin AST ALT Alkaline Phosphatase Total Protein Albumin Blood Type Antibody Screen Impressions: Abdomen/Pelvis CT 10/11/17 00:00 IMPRESSION: 1. The uterus remains enlarged but no focal masses are identified. 2. No other significant findings in the abdomen or pelvis. No evidence of inflammation. No evidence of bowel obstruction. Qualifiers - * PATIENT BEING DISCHARGED WITH ANY OF THE FOLLOWING DIAGNOSIS: No
== END 2017-10-14 18:10 | disposition home or self-care (01) | DRG 392 ==
LOC: 4N 15:42 → OBSVTOIN 10-13 14:16 → 4N 10-13 20:21
PROVIDERS: ADMIT Internal Medicine; ATTEND Internal Medicine
PROC: 30233N1 Transfusion of Nonautologous Red Blood Cells into Peripheral Vein, Percutaneous Approach (ICD-10-PCS; 2017-10-13)
PROC: 0DB68ZX Excision of Stomach, Via Natural or Artificial Opening Endoscopic, Diagnostic (ICD-10-PCS; principal; 2017-10-13 13:30)
PROC: 0DBN8ZX Excision of Sigmoid Colon, Via Natural or Artificial Opening Endoscopic, Diagnostic (ICD-10-PCS; 2017-10-13 13:30)
PROC: 0DBF8ZX Excision of Right Large Intestine, Via Natural or Artificial Opening Endoscopic, Diagnostic (ICD-10-PCS; 2017-10-13 13:30)
PROC: 30233N1 Transfusion of Nonautologous Red Blood Cells into Peripheral Vein, Percutaneous Approach (ICD-10-PCS; 2017-10-14)
DX: K29.00 Acute gastritis without bleeding (principal); F11.20 Opioid dependence, uncomplicated; Q43.8 Other specified congenital malformations of intestine; K57.30 Diverticulosis of large intestine without perforation or abscess without bleeding; K64.8 Other hemorrhoids; D12.5 Benign neoplasm of sigmoid colon; K52.9 Noninfective gastroenteritis and colitis, unspecified; D50.0 Iron deficiency anemia secondary to blood loss (chronic); E03.9 Hypothyroidism, unspecified; F31.9 Bipolar disorder, unspecified; F17.210 Nicotine dependence, cigarettes, uncomplicated; Z79.899 Other long term (current) drug therapy; Z88.2 Allergy status to sulfonamides; Z88.8 Allergy status to other drugs, medicaments and biological substances
CPT/HCPCS: 36415; 36430; 43239; 45380; 45385; 74177; 80048; 80053; 80076; 81001; 813; 82150; 82607; 82728; 82746; 83540; 83550; 83690; 84439; 84443; 85025; 85027; 85045; 86850; 86900; 86901; 86920; 87086; 88305; 88342; G0378; J1756; J2270; J2704; J3490; J7030; P9016